=== PATIENT | male | born 1970 | race Caucasian/White ===

== ENCOUNTER → 2022-04-16 | Outpatient (CLI) | payer BC ==
--- NOTE | 2022-04-16 15:45 | US ---
EXAMINATION TYPE: US kidneys/renal and bladder DATE OF EXAM: 04/16/2022 COMPARISON: NONE CLINICAL HISTORY: N20 CALCULUS OF KIDNEYS. Pt states h/o renal calculus, lithotripsy EXAM MEASUREMENTS: Right Kidney: 12.0 x 5.0 x 5.1 cm Left Kidney: 11.0 x 5.0 x 4.7 cm Right Kidney: No evidence of hydro Left Kidney: No evidence of hydro Bladder: wnl Bilateral Jets seen: Yes There is a 0.4 cm nonobstructing calcification with posterior shadowing in the mid right kidney. There are several echogenic foci within the inferior pole left kidney compatible with nonobstructing renal stones. IMPRESSION: Bilateral nonobstructing renal stones.
== END | disposition home or self-care (01) ==
LOC: RADUSWWP 14:57
PROVIDERS: ATTEND Internal Medicine Geriatric Medicine
DX: N20.0 Calculus of kidney (principal)
CPT/HCPCS: 76770

== ENCOUNTER → 2023-04-07 | Outpatient (CLI) | payer BC ==
[2023-04-07 08:46] LABS: Appearance,Urine Clear (Clear); Bilirubin,Urine Negative (Negative); Blood,Urine Negative (Negative); Color,Urine Colorless; Glucose,Urine (UA) Negative (Negative); Ketones,Urine Negative (Negative); Leukocyte Esterase,Urine Negative (Negative); Nitrite,Urine Negative (Negative); Protein,Urine Negative (Negative); Specific Gravity,Urine 1.019 (1.001-1.035); Urobilinogen,Urine <2.0 mg/dL (<2.0)
[2023-04-07 11:17] LABS: HCT 46.6 % (39.6-50.0); HGB 15.3 g/dL (13.0-17.0); MCH 30.7 pg (27.0-32.0); MCHC 32.8 g/dL (32.0-37.0); MCV 93.4 FL (80.0-97.0); Mean Platelet Volume 11.9 FL (9.5-12.2); NRBC Per 100 WBC 0 X 10*3/uL (0.00-0.01); Platelet Count 270 X 10*3/uL (140-440); RBC 4.99 X 10*6/uL (4.40-5.60); RDW 12.5 % (11.5-14.5); WBC 6.98 X 10*3/uL (4.50-10.00)
[2023-04-07 11:29] LABS: BUN/Creat Ratio 19.42 Ratio (12.00-20.00); Blood Urea Nitrogen 23.3 mg/dL (9.0-27.0); Calcium 9.9 mg/dL (8.7-10.3); Carbon Dioxide 24.1 mmol/L (21.6-31.8); Chloride 107 mmol/L (96-109); Glucose 97 mg/dL (70-110); Sodium 141 mmol/L (135-145)
--- NOTE | 2023-04-07 15:11 | XR ---
EXAMINATION TYPE: XR chest 2V DATE OF EXAM: 04/07/2023 COMPARISON: None HISTORY: 52-year-old male Z01.818 PRE OP TECHNIQUE: Frontal and lateral views FINDINGS: ACDF hardware. The cardiomediastinal silhouette, aorta, and pulmonary vasculature are within normal l imits. Lungs and pleural spaces are clear. IMPRESSION: No acute cardiopulmonary process.
== END | disposition home or self-care (01) ==
LOC: LABWHC1 07:53
PROVIDERS: ATTEND Neurological Surgery
DX: Z01.811 Encounter for preprocedural respiratory examination (principal); I49.8 Other specified cardiac arrhythmias; R05.9 Cough, unspecified; D64.9 Anemia, unspecified; R73.09 Other abnormal glucose
CPT/HCPCS: 36415; 71046; 80048; 81003; 83036; 85027; 93005

== ENCOUNTER → 2023-12-07 | Outpatient (CLI) | payer BC ==
[2023-12-07 18:21] LABS: Appearance,Urine Clear (Clear); Basophils # (A) 0.05 X 10*3/uL (0.00-0.10); Basophils % (A) 0.8 %; Bilirubin,Urine Negative (Negative); Blood,Urine Negative (Negative); Color,Urine Yellow (Yellow); Eosinophils # (A) 0.13 X 10*3/uL (0.04-0.35); HCT 45.6 % (39.6-50.0); HGB 15.4 g/dL (13.0-17.0); Ketones,Urine Trace (Negative); Lymphocytes # (A) 2.05 X 10*3/uL (0.90-5.00); Lymphocytes % (A) 31.7 %; MCHC 33.8 g/dL (32.0-37.0); MCV 91.8 FL (80.0-97.0); Mean Platelet Volume 11.8 FL (9.5-12.2); Monocytes # (A) 0.53 X 10*3/uL (0.20-1.00); Monocytes % (A) 8.2 %; NRBC Per 100 WBC 0 X 10*3/uL (0.00-0.01); Neutrophils % (A) 57.1 %; Nitrite,Urine Negative (Negative); Platelet Count 229 X 10*3/uL (140-440); RBC 4.97 X 10*6/uL (4.40-5.60); RDW 12.3 % (11.5-14.5); Specific Gravity,Urine 1.017 (1.001-1.030); WBC 6.47 X 10*3/uL (4.50-10.00)
[2023-12-07 18:33] LABS: ALT 23 U/L (10-49); AST 21 U/L (14-35); Albumin 4.4 g/dL (3.8-4.9); Albumin/Globulin Ratio 1.83 Ratio (1.60-3.17); Alkaline Phosphatase 91 U/L (41-126); BUN/Creat Ratio 14.42 Ratio (12.00-20.00); Blood Urea Nitrogen 17.3 mg/dL (9.0-27.0); Calcium 9.7 mg/dL (8.7-10.3); Carbon Dioxide 21.9 mmol/L (21.6-31.8); Chloride 107 mmol/L (96-109); Globulin 2.4 g/dL (1.6-3.3); Glucose 99 mg/dL (70-110); Magnesium 2.2 mg/dL (1.5-2.4); Phosphorus 2.6 mg/dL (2.4-5.1); Potassium 4.5 mmol/L (3.5-5.5); Sodium 141 mmol/L (135-145); Total Bilirubin 0.4 mg/dL (0.3-1.2); Total Protein 6.8 g/dL (6.2-8.2)
[2023-12-07 20:08] LABS: Microalbumin Creatinine Ratio <7 mg/g Cr (0-30)
== END | disposition home or self-care (01) ==
LOC: LABWHC1 15:13
PROVIDERS: ATTEND Internal Medicine
DX: N18.30 Chronic kidney disease, stage 3 unspecified (principal)
CPT/HCPCS: 36415; 80053; 81003; 82043; 82570; 83735; 84100; 85025